=== PATIENT | male | born 1980 | race Caucasian/White ===

== ENCOUNTER 2019-03-23 09:23 | Emergency (ER) | payer SELFPAY ==
[~2019-03-23] VITALS: Ht 182.9 cm; Wt 143.2 kg
[2019-03-23] MEDS ORDERED: cloNIDine HCL 0.1 MG TABLET ONE (10:01)
[2019-03-23 10:06] LABS: BASO # 0.1 x10^3/uL (0.0-0.2); BASO % 1 % (0-3); EOS # 0.3 x10^3/uL (0.0-0.7); EOS % 5 % (0-3); HEMATOCRIT 46.5 % (39.0-53.0); HEMOGLOBIN 16.1 g/dL (13.0-17.5); LYMPH # 2.2 x10^3/uL (1.0-4.8); LYMPH % 29 % (24-48); MEAN CORPUSCULAR HEMOGLOBIN 31 pg (25-35); MEAN CORPUSCULAR HGB CONC 35 g/dL (31-37); MEAN CORPUSCULAR VOLUME 90 fL (79-100); MONO # 0.5 x10^3/uL (0.0-1.1); MONO % 6 % (0-9); NEUT # 4.6 x10^3uL (1.8-7.7); NEUT % 59 % (31-73); PLATELET COUNT 246 x10^3/uL (140-400); RED BLOOD COUNT 5.19 x10^6/uL (4.30-5.70); WHITE BLOOD COUNT 7.7 x10^3/uL (4.0-11.0)
[2019-03-23] MEDS ORDERED: cloNIDine HCL 0.1 MG TABLET PO ONE ×2 (10:15→11:15)
--- NOTE | 2019-03-23 10:15 | RAD ---
CHEST AP ONLY Clinical indications: Chest pain. COMPARISON: None available. Findings: No acute lung infiltrate or pleural effusion or pulmonary edema or lung mass or pneumothorax is seen. The heart size, pulmonary vasculature, mediastinum and both sharad are unremarkable given AP magnification. Impression: No acute radiographic abnormality is seen. Electronically signed by: Ritesh Rivas MD (03/23/2019 10:13 AM) [facility]
[2019-03-23 10:19] LABS: ALBUMIN 3.8 g/dL (3.4-5.0); ALBUMIN/GLOBULIN RATIO 1.2 (1.0-1.7); CALCIUM 8.7 mg/dL (8.5-10.1); CREATININE 1.2 mg/dL (0.7-1.3); GFR 67.1; POTASSIUM 4.3 mmol/L (3.5-5.1); TOTAL BILIRUBIN 0.5 mg/dL (0.2-1.0)
[2019-03-23] MEDS ORDERED: CLON-276 PO (11:08)
[2019-03-23 11:18] VITALS: BP 139/87
--- NOTE | 2019-03-23 11:25 | PHYS DOC ---
Past History Past Medical History: Hypertension Past Surgical History: Other Additional Past Surgical Histo: ingual hernia repair; knee surgery Alcohol Use: Occasionally Drug Use: Marijuana Social History Narrative: none recently Adult General Chief Complaint Chief Complaint: CHEST PAIN HPI HPI Patient is a 38-year-old male who presents with chest pain 2 weeks and elevated blood pressure. Chest pain is located left lower chest/left upper quadrant of abdomen. Patient is currently pain-free. Patient states he was at work and notified his boss of his symptoms and was instructed to come to the ED for additional evaluation. Patient recently relocated from [place] has not yet had opportunity to establish with a primary care provider. He states he was recently prescribed high blood pressure medication but medications were during moving. Denies dyspnea, fever chills, sweats, nausea. Reports acid reflux symptoms and anxiety. No leg pain or swelling. No other acute symptoms or complaints. 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 He is a nonsmoker. Family history of diabetes. [] Review of Systems Review of Systems Review symptoms as per history of present illness. All other review symptoms are negative All other systems were reviewed and found to be within normal limits, except as documented in this note. Current Medications Current Medications Current Medications Medications (Trade) Dose Ordered Sig/Jere Start Time Stop Time Status Last Admin Dose Admin Clonidine HCl (Catapres) 0.2 mg 1X ONCE 03/23/19 11:15 03/23/19 11:16 DC 03/23/19 10:59 0.2 MG Allergies Allergies Allergies Coded Allergies Type Severity Reaction Last Updated Verified No Known Drug Allergies 03/23/19 No Physical Exam Physical Exam Constitutional: Well developed, well nourished, no acute distress, non-toxic appearance. [] HENT: Normocephalic, atraumatic, bilateral external ears normal, oropharynx moist, no oral exudates, nose normal. [] Eyes: PERRLA, EOMI, conjunctiva normal, no discharge. [] Neck: Normal range of motion, no tenderness, supple, no stridor. [] Cardiovascular:Heart rate regular rhythm, no murmur [] Lungs & Thorax: Bilateral breath sounds clear to auscultation [] Abdomen: Bowel sounds normal, soft, no tenderness. [] Skin: Warm, dry, no erythema, no rash. [] Back: No tenderness, no CVA tenderness. [] Extremities: No tenderness, no cyanosis, no clubbing, ROM intact, no edema. [] Neurologic: Alert and oriented X 3, normal motor function, normal sensory function, no focal deficits noted. [] Psychologic: Affect normal, judgement normal, mood normal. [] Current Patient Data Vital Signs Vital Signs Date Time Temp Pulse Resp B/P (MAP) Pulse Ox O2 Delivery O2 Flow Rate FiO2 03/23/19 11:18 81 15 139/87 (104) 96 Room Air 03/23/19 09:29 98.0 Lab Results Laboratory Tests Test 03/23/19 09:42 White Blood Count 7.7 x10^3/uL (4.0-11.0) Red Blood Count 5.19 x10^6/uL (4.30-5.70) Hemoglobin 16.1 g/dL (13.0-17.5) Hematocrit 46.5 % (39.0-53.0) Mean Corpuscular Volume 90 fL (79-100) Mean Corpuscular Hemoglobin 31 pg (25-35) Mean Corpuscular Hemoglobin Concent 35 g/dL (31-37) Red Cell Distribution Width 13.0 % (11.5-14.5) Platelet Count 246 x10^3/uL (140-400) Neutrophils (%) (Auto) 59 % (31-73) Lymphocytes (%) (Auto) 29 % (24-48) Monocytes (%) (Auto) 6 % (0-9) Eosinophils (%) (Auto) 5 % (0-3) H Basophils (%) (Auto) 1 % (0-3) Neutrophils # (Auto) 4.6 x10^3uL (1.8-7.7) Lymphocytes # (Auto) 2.2 x10^3/uL (1.0-4.8) Monocytes # (Auto) 0.5 x10^3/uL (0.0-1.1) Eosinophils # (Auto) 0.3 x10^3/uL (0.0-0.7) Basophils # (Auto) 0.1 x10^3/uL (0.0-0.2) Sodium Level 138 mmol/L (136-145) Potassium Level 4.3 mmol/L (3.5-5.1) Chloride Level 102 mmol/L (98-107) Carbon Dioxide Level 27 mmol/L (21-32) Anion Gap 9 (6-14) Blood Urea Nitrogen 14 mg/dL (8-26) Creatinine 1.2 mg/dL (0.7-1.3) Estimated GFR (Cockcroft-Gault) 67.1 BUN/Creatinine Ratio 12 (6-20) Glucose Level 223 mg/dL (70-99) H Calcium Level 8.7 mg/dL (8.5-10.1) Total Bilirubin 0.5 mg/dL (0.2-1.0) Aspartate Amino Transferase (AST) 20 U/L (15-37) Alanine Aminotransferase (ALT) 40 U/L (16-63) Alkaline Phosphatase 97 U/L (46-116) Troponin I Quantitative < 0.017 ng/mL (0-0.055) Total Protein 7.0 g/dL (6.4-8.2) Albumin 3.8 g/dL (3.4-5.0) Albumin/Globulin Ratio 1.2 (1.0-1.7) EKG EKG [EKG: Normal sinus rhythm, no acute ST-T wave changes, QTC normal.] Radiology/Procedures Radiology/Procedures [Chest x-ray: No acute cardiopulmonary disease per radiology report.] Course & Med Decision Making Course & Med Decision Making Pertinent Labs and Imaging studies reviewed. (See chart for details) [Patient denies chest pain during ED stay. EKG, troponin negative. Occasional PAC witnessed on monitor. A pressure addressed and improved. Recommendations are for hospitalist admission for cardiac testing and treatment of blood pressure and suspected new-onset diabetes. Patient declines. He verbalizes understanding that he is unknown risk for heart disease, and disability but prefers to follow-up in the outpatient setting. Patient will be discharged at his request instructions to follow-up with PCP in the next 1-2 days and return to the ED should he change his mind regarding hospital admission or symptoms return. Patient verbalizes understanding agreement discharge instructions prior to departure.] Dragon Disclaimer Dragon Disclaimer This electronic medical record was generated, in whole or in part, using a voice recognition dictation system. Departure Departure: Impression: Primary Impression: Premature atrial contraction Additional Impressions: Hyperglycemia Chest pain Hypertension Disposition: HOME, SELF-CARE Condition: IMPROVED Patient Instructions: Hyperglycemia, [id number], Hypertension, [id number], Chest Pain (Nonspecific)-Brief Additional Instructions: Please start daily antacid and baby aspirin. Take blood pressure medication l ater today and continue taking until you follow up with primary care physician in the next 1-2 days. Return to the ED if you develop new or worsening symptoms or change your mind regarding hospital admission.. Scripts Clonidine Hcl (CLONIDINE HCL) 0.2 Mg Tablet 1 TAB PO BID, #60 TAB 5 Refills Prov: SALENA TRUJILLO DO 03/23/19 Problem Qualifiers SALENA TRUJILLO DO Mar 23, 2019 11:25
--- NOTE | 2019-03-23 13:26 | EKG ---
[address] [address] Test Date: 2019-03-23 Test Time: 09:37:31 Pat Name: TYRON LUGO Department: Room: Gender: M Greek Professor: : 1980 Requested By: SALENA TRUJILLO Order Number: [id number] Reading MD: Measurements Intervals Gardner Rate: 82 P: 47 TN: 180 QRS: 24 QRSD: 100 T: 48 QT: 362 QTc: 426 Interpretive Statements SINUS RHYTHM NO SPECIFIC ECG ABNORMALITIES RI6.01 No previous ECG available for comparison
== END 2019-03-23 11:15 | disposition home or self-care (01) ==
LOC: ER 09:23
DX: I49.1 Atrial premature depolarization (principal); R73.9 Hyperglycemia, unspecified; I10 Essential (primary) hypertension
CPT/HCPCS: 36415; 71045; 80053; 84484; 85025; 93005; 99285

== ENCOUNTER 2019-11-24 06:40 | Inpatient (IN) | payer SELFPAY ==
[~2019-11-24] VITALS: Ht 182.9 cm; Wt 28.5 kg
[~2019-11-24 06:40] MED LIST: CLON-276 PO
[2019-11-24] MEDS ORDERED: diphenhydrAMINE 50 MG/ML VIAL IVP ONE (07:00)
[2019-11-24] MEDS ORDERED: methylPREDNISolone SOD SUCC PF 125 MG/2 ML VIAL. IV ONE (07:00)
[2019-11-24] MEDS ORDERED: FAMOTIDINE 20 MG/2 ML VIAL IVP ONE (07:00)
--- NOTE | 2019-11-24 07:10 | PHYS DOC ---
Past History Past Medical History: Hypertension Past Surgical History: Other Additional Past Surgical Histo: hernia repair Alcohol Use: Occasionally Drug Use: Marijuana General Adult EDM: Chief Complaint: TONGUE SWELLING/INJURY HPI: HPI: 39-year-old male past medical history of hypertension (takes no routine medications), presents to the ED with complaints of tongue and lip swelling that started around 2:00 this morning. Reports for the last 6 weeks he has had hand and right foot swelling, pruritic rash, and facial swelling, intermittently. Cannot recall any new lotions, perfumes, detergents, clothing, new foods (no seafood/fish) or medications. No family history of angioedema. 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 States he moved here year ago from [place] and has not established a PCP. No h/o allergic reaction/anaphylaxis/angioedema that required epinephrine IM or intubation. Has never been prescribed lisinopril. C/o being hot and is sweating on exam. Prior to this felt well. ROS: Denies associated cough, sore throat, drooling/spitting, dyspnea, chest pain, nausea, vomiting, diarrhea, abdominal pain, extremity swelling, rash, neck stiffness, headache, hemoptysis, leg swelling, back pain, fever/chills, sensory or motor deficits. Review of Systems: Review of Systems: Constitutional: Denies fever or chills Eyes: Denies change in visual acuity HENT: Denies nasal congestion or sore throat Respiratory: Denies cough or shortness of breath Cardiovascular: Denies chest pain or edema GI: Denies abdominal pain, nausea, vomiting, bloody stools or diarrhea : Denies dysuria Musculoskeletal: Denies back pain or joint pain Integument: Denies rash Neurologic: Denies headache, focal weakness or sensory changes Endocrine: Denies polyuria or polydipsia Lymphatic: Denies swollen glands Psychiatric: Denies depression or anxiety Current Medications: Current Meds: Current Medications Medications (Trade) Dose Ordered Sig/Jere Start Time Stop Time Status Last Admin Dose Admin Diphenhydramine HCl (Benadryl) 50 mg 1X ONCE 11/24/19 07:00 11/24/19 07:01 DC Epinephrine HCl (EPINEPHrine AMPULE) 0.3 mg 1X ONCE 11/24/19 07:15 11/24/19 07:16 UNV Famotidine (Pepcid Vial) 20 mg 1X ONCE 11/24/19 07:00 11/24/19 07:01 DC Methylprednisolone Sodium Succinate (SOLU-Medrol 125MG VIAL) 125 mg 1X ONCE 11/24/19 07:00 11/24/19 07:01 DC Allergies: Allergies: Allergies Coded Allergies Type Severity Reaction Last Updated Verified No Known Drug Allergies 03/23/19 No Physical Exam: PE: Constitutional: Well developed, well nourished, no acute distress, non-toxic appearance. [] HENT: Normocephalic, atraumatic, bilateral external ears normal, oropharynx moist, no oral exudates, nose normal, +left lateral tongue swelling with slurred speech, left upper lip edema Eyes: EOMI, conjunctiva normal, no discharge. [] Neck: Normal range of motion, no tenderness, supple, no stridor. [] Cardiovascular:Heart rate regular rhythm, no murmur [] Lungs & Thorax: Bilateral breath sounds clear to auscultation, no drooling/spitting/tripod position/or increased work of breathing Abdomen: Bowel sounds normal, soft, no tenderness, no masses, no pulsatile m asses. [] Skin: Warm, sweaty, no erythema, no rash. [] Back: No tenderness, no CVA tenderness. [] Extremities: No tenderness, no cyanosis, no clubbing, ROM intact, no edema. [] Neurologic: Alert and oriented X 3, normal motor function, normal sensory function, no focal deficits noted. [] Psychologic: Affect normal, judgement normal, mood normal. [] Current Patient Data: Vital Signs: Vital Signs Date Time Temp Pulse Resp B/P (MAP) Pulse Ox O2 Delivery O2 Flow Rate FiO2 11/24/19 06:52 97.4 20 193/106 (135) 96 Room Air EKG: EKG: [] Radiology/Procedures: Radiology/Procedures: IMAGING REPORT Signed PATIENT: TYRON LUGO DACCOUNT: [id number] : 1980 LOCATION: ER AGE: 39 SEX: M EXAM STATUS: REG ER ORD. PHYSICIAN: ALAINA MCNEIL DO REASON: soa, facial swelling PROCEDURE: CHEST AP ONLY EXAM: CHEST 1 VIEW History: Shortness of breath COMPARISON: 03/23/2019 TECHNIQUE: Single portable radiograph of the chest FINDINGS: The cardiac silhouette is unremarkable. The lungs are clear bilaterally. The costophrenic sulci are clear and well demarcated. IMPRESSION: No radiographic evidence of an acute cardiopulmonary process. Electronically signed by: Paxton Giron MD (11/24/2019 7:06 AM) [id number] DICTATED AND SIGNED BY: PAXTON GIRON MD DATE: 11/24/19705 CC: PCP,FARZANA; ALAINA MCNEIL DO ~ Course & Med Decision Making: Course & Med Decision Making Pertinent Labs and Imaging studies reviewed. (See chart for details) Concern for angioedema of the tongue, no rash, no abdominal pain, nausea/vomiting/diarrhea. Epinephrine, Benadryl, Pepcid and solu-medrol given in the ED. Pt with asymptomatic uncontrolled hypertension w/rex, Cr 1.4 (1.2, a year prior). Patient states symptoms have been waxing waning for the past 6 months. On re-evaluation/time of admission, pt resting comfortably with some improvement of the tongue swelling. No oropharyngeal edema. Will admit to ICU for monitoring-patient educated and very well aware of life-threatening risk of airway compromise and need for rapid intubation versus cricothyrotomy. Patient stable at time of admission and agrees with this plan. Critical Care: Authorized and Performed by: Alaina Mcneil DO Total critical care time: approximately 30 minutes Due to a high probability of clinically significant, life threatening deterioration, the patient required my highest level of preparedness to intervene emergently and I personally spent this critical care time directly and personally managing the patient. This critical care time included obtaining a history; examining the patient; pulse oximetry; ventilator management if necessary; ordering and review of studies; arranging urgent treatment with development of a management plan; evaluation of patient's response to treatment; frequent reassessment; discussion with patient/family; and, discussions with other providers. This critical care time was performed to assess and manage the high probability of imminent, life-threatening deterioration that could result in multi-organ failure. It was exclusive of separately billable procedures and treating other patients and teaching time. Please see MDM section and the rest of the note for further information on patient assessment and treatment. Dragon Disclaimer: Kayy Disclaimer: This electronic medical record was generated, in whole or in part, using a voice recognition dictation system. Departure Departure: Impression: Primary Impression: Angio-edema Additional Impressions: Tongue swelling REX (acute kidney injury) Disposition: 09 ADMITTED INPATIENT Admitting Physician: Pauly Goldberg Condition: CRITICAL Referrals: PCP,NO (PCP) Justification of Admission: Justification of Admission: Justification of Admission Dx: Yes Comments: angioedema of the tongue ALAINA MCNEIL DO Nov 24, 2019 07:10
[2019-11-24 07:48] LABS: BASO # 0.1 x10^3/uL (0.0-0.2); BASO % 1 % (0-3); EOS # 0.3 x10^3/uL (0.0-0.7); EOS % 4 % (0-3); HEMOGLOBIN 16.4 g/dL (13.0-17.5); LYMPH # 2.2 x10^3/uL (1.0-4.8); LYMPH % 26 % (24-48); MEAN CORPUSCULAR HEMOGLOBIN 32 pg (25-35); MEAN CORPUSCULAR HGB CONC 35 g/dL (31-37); MEAN CORPUSCULAR VOLUME 91 fL (79-100); MONO # 0.7 x10^3/uL (0.0-1.1); MONO % 8 % (0-9); NEUT # 5.1 x10^3uL (1.8-7.7); NEUT % 61 % (31-73); PLATELET COUNT 324 x10^3/uL (140-400); RED CELL DISTRIBUTION WIDTH 13.2 % (11.5-14.5); WHITE BLOOD COUNT 8.4 x10^3/uL (4.0-11.0)
[2019-11-24 07:55] LABS: CALCIUM 8.7 mg/dL (8.5-10.1); CREATININE 1.4 mg/dL (0.7-1.3); GFR 55.8; POTASSIUM 3.7 mmol/L (3.5-5.1)
[2019-11-24 08:01] LABS: ALBUMIN 4.1 g/dL (3.4-5.0); ALBUMIN/GLOBULIN RATIO 1.1 (1.0-1.7); TOTAL BILIRUBIN 0.6 mg/dL (0.2-1.0)
[2019-11-24] MEDS ORDERED: IV NORMAL SALINE 1,000ML 1,000 ML IV SCH (08:17)
[2019-11-24] MEDS ORDERED: ONDANSETRON PF 4 MG/2 ML VIAL. IVP PRN (08:30)
[2019-11-24 09:15] VITALS: BP 148/96
[2019-11-24 11:31] VITALS: BP 152/71
[2019-11-24 15:00] VITALS: BP 166/95
--- NOTE | 2019-11-24 16:48 | SSS ---
ADMIT DATE: 11/24/2019 HISTORY OF PRESENT ILLNESS: The patient is a 39-year-old male patient who presented to the Emergency Room with a complaint of swelling of his tongue. He apparently is known to have hypertension for which he is currently on no medication for almost a year. He came complaining of tongue and lip swelling that started around 8:00 in the morning. Reports for the last 6 weeks, has had hand and right foot swelling, pruritic rash and facial swelling, intermittent; cannot recall any new lotion, perfumes, detergents, clothing new foods. No seafood or fish or medication. No family history of angioedema. 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 He moved here a year ago from [place] and has not had established a primary care physician. No history of allergic reaction, anaphylactic shock or angioedema that required epinephrine intramuscular intubation; has never been prescribed lisinopril. However, he denied any shortness of breath, denied any difficulty swallowing. He was able to talk and eat and drink without any difficulty throughout all these episodes and never complained of any abdominal cramping. He was evaluated in the Emergency Room where he was treated with epinephrine, Benadryl, Pepcid and Solu-Medrol given in the Emergency Room and was admitted for observation. PAST MEDICAL HISTORY: Significant for hypertension, gastroesophageal reflux disease, gout. PAST SURGICAL HISTORY: Significant for hernia surgery and right knee arthroscopic surgery. ALLERGIES: He has no known drug allergies. MEDICATIONS: He is currently only on Advil PM, aspirin and baking soda for severe heart. FAMILY HISTORY: He has twin brother who lives in [place] and has diabetes. His younger sister is apparently healthy. His father at the age of 50 because of complications of diabetes, peripheral vascular disease, congestive heart failure. His mother is still alive at age of 61. SOCIAL HISTORY: He is , but he lives with his fiancee. He has 2 daughters and 1 son. He smoked for about 3 years and quit about 8 years ago. He drinks alcohol occasionally and occasionally smokes marijuana. 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 REVIEW OF SYSTEMS: By the time I saw him, he was doing fine. All the swelling of his tongue and his lips has completely subsided. There was no pallor, jaundice, cyanosis or thyromegaly. No jugular venous distention or limb edema. PHYSICAL EXAMINATION: VITAL SIGNS: His heart rate was 81, blood pressure was 152/71, temperature was 97.7, respiratory rate was 19 and oxygen saturation was 96%. HEAD, EYES, EARS, NOSE AND THROAT: Showed normocephalic, atraumatic. NECK: Supple. HEART: Showed normal first and second heart sounds. No gallop, rub or murmur. CHEST: Clear to auscultation. No crepitation or rhonchi. ABDOMEN: Distended, soft. NEUROLOGIC: He was awake, alert, responding appropriately. All cranial nerves intact. EXTREMITIES: He moves extremities without difficulty. He ambulates without assistance or assistive devices. LABORATORY DATA: Showed a white cell count of 8400, hemoglobin 16, hematocrit 47, MCV 91 and platelet count of 324,000. His serum sodium was 139, potassium 3.7, chloride 102, bicarbonate 26, anion gap of 11, BUN 15, creatinine 1.4, estimated GFR was 55 mL per minute, his glucose 166, calcium was 8.7. Total bilirubin, AST, ALT, alkaline phosphatase were normal. Total protein 8, albumin was 4.1. ASSESSMENT: The patient has apparently responded well to the Solu-Medrol, Pepcid and Benadryl as well as epinephrine. He was observed in the ICU and as he remained stable, the patient was given a prescription for steroids, Pepcid as well as Benadryl and blood pressure medication and we advised him that to see an knitting inspector by the name of Dr. 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 Other medical problems include hypertension, gastroesophageal reflux disease, and gout. GHAZALA WARREN MD DR: INA/martir JOB#: [id number] / [id number]
[2019-11-24] MEDS ORDERED: DIPH25CA58 PO (17:21)
[2019-11-24] MEDS ORDERED: AMLO10TA8 PO (17:21)
[2019-11-24] MEDS ORDERED: FAMO-63 PO (17:21)
[2019-11-24] MEDS ORDERED: PRED20TA PO (17:21)
[2019-11-25] MEDS ORDERED: TRANEXAMIC ACID 1,000 MG in IV NORMAL SALINE 250ML 250 ML IV ONE (06:00)
== END 2019-11-24 17:45 | disposition home or self-care (01) | DRG 916 ==
LOC: ER 06:40 → ICU 08:54
PROVIDERS: ADMIT Internal Medicine; ATTEND Internal Medicine
DX: T78.3XXA Angioneurotic edema, initial encounter (principal); N17.9 Acute kidney failure, unspecified; D84.1 Defects in the complement system; F12.90 Cannabis use, unspecified, uncomplicated; I10 Essential (primary) hypertension; K21.9 Gastro-esophageal reflux disease without esophagitis; M10.9 Gout, unspecified; Z82.49 Family history of ischemic heart disease and other diseases of the circulatory system; Z83.3 Family history of diabetes mellitus; Z87.891 Personal history of nicotine dependence
CPT/HCPCS: 36415; 71045; 80053; 85025; 96361; 96372; 96374; 96375; J0171; J1200; J2930; J3490; 99285-25; J7030